=== PATIENT | male | born 1955 | race Caucasian/White ===

== ENCOUNTER 2019-08-03 14:25 | Day surgery (SDC) | payer MEDICARE, MEDICAID ==
[~2019-08-03] VITALS: Ht 170.2 cm; Wt 116.3 kg
[2019-08-03] VITALS (7 sets, daily range): BP systolic 110–121; BP diastolic 61–75
[~2019-08-03 14:25] MED LIST: ALBU18HF2 IH; ASPI-1009 PO; ATOR40TA PO; ENAL10TA PO; GABA-347 PO; LOSA25TA96 PO; METF500T PO; NITR1PAT TD
[2019-08-03] MEDS ORDERED: diphenhydrAMINE 25mg capsule PO ONE (14:45)
[2019-08-03] MEDS ORDERED: LORazepam 0.5 MG tablet PO ONE (14:45)
[2019-08-03] MEDS ORDERED: LIDOcaine/PRILOcaine 5gm cream TP ONE (14:45)
[2019-08-03] MEDS ORDERED: normal saline 1000ml 1,000 ML IV SCH (14:45)
[2019-08-03] MEDS ORDERED: METF500T PO (14:59)
[2019-08-03] MEDS ORDERED: DABI150C PO (15:00)
[2019-08-03] MEDS ORDERED: SOTA80TA73 PO (15:03)
[2019-08-03] MEDS ORDERED: AMLO2.5T2 PO (15:05)
[2019-08-03 15:39] LABS: PARTIAL THROMBOPLASTIN TIME 23 SECONDS (22-32)
[2019-08-03] MEDS ORDERED: heparin 1,000unit/ml 10ml vial 10 ML ONE (17:41)
[2019-08-03] MEDS ORDERED: midazolam 2 mg/2 ml injection ONE (17:41)
[2019-08-03] MEDS ORDERED: verapamil 2.5 mg/ml inj IV ONE (17:41)
[2019-08-03] MEDS ORDERED: LIDOcaine 1% (10mg/ml)w/preservative injection 20ml MDV ONE (17:41)
[2019-08-03] MEDS ORDERED: iohexol 350MG/ML 100ml bottle IV ONE (17:41)
[2019-08-03] MEDS ORDERED: heparin 1,000 UNITS/NS 500ml 500 ML ONE ×2 (17:42)
[2019-08-03] MEDS ORDERED: fentaNYL/PF 50MCG/1 ML 2ML syringe ONE (17:42)
[2019-08-03] MEDS ORDERED: nitroGLYCERIN-Tridil 50MG/D5W 250 ML IV ONE (17:42)
[2019-08-03] MEDS ORDERED: HYDROcodone/acetaminophen 5mg/325mg tablet PO PRN (18:40)
[2019-08-03] MEDS ORDERED: HYDROcodone/acetaminophen 10/325mg tab PO PRN (18:40)
[2019-08-03] MEDS ORDERED: proCHLORperazine 10 MG/2 ml inj IV PRN (18:40)
[2019-08-03] MEDS ORDERED: OXAZEpam 15mg capsule PO PRN (18:40)
[2019-08-03] MEDS ORDERED: ondansetron/PF 4mg/2ml inj IV PRN (18:40)
== END 2019-08-03 20:35 | disposition home or self-care (01) ==
LOC: SSTAY O 14:25
PROVIDERS: ATTEND Internal Medicine Interventional Cardiology
DX: R94.39 Abnormal result of other cardiovascular function study (principal); I25.10 Atherosclerotic heart disease of native coronary artery without angina pectoris; G47.33 Obstructive sleep apnea (adult) (pediatric); E11.9 Type 2 diabetes mellitus without complications; I10 Essential (primary) hypertension; I48.91 Unspecified atrial fibrillation; E78.5 Hyperlipidemia, unspecified; F17.210 Nicotine dependence, cigarettes, uncomplicated; Z86.718 Personal history of other venous thrombosis and embolism; Z79.899 Other long term (current) drug therapy; Z79.84 Long term (current) use of oral hypoglycemic drugs; Z95.5 Presence of coronary angioplasty implant and graft; Z88.8 Allergy status to other drugs, medicaments and biological substances
CPT/HCPCS: 36415; 82948; 85610; 85730; 93005; 93458; 99152; C1769; C1894; J1644; J2001; J2250; J3010; J7030; Q0163; Q9967; A4620; A6258; J3490

== ENCOUNTER 2023-08-12 10:37 | Day surgery (SDC) | payer MEDICARE, MEDICAID ==
[2023-08-12] VITALS (16 sets, daily range): BP systolic 115–152; BP diastolic 56–123; PULSE 63–90; RESP 8–24; TEMP 98.3; O2SAT 91–96
[~2023-08-12] VITALS: Ht 170.2 cm; Wt 117.9 kg
[~2023-08-12 10:37] MED LIST changes: -ALBU18HF2 IH; +AMLO2.5T2 PO; -ASPI-1009 PO; +DABI150C PO; -ENAL10TA PO; +LOSA-415 PO; -LOSA25TA96 PO; -NITR1PAT TD; +SOTA80TA73 PO
[2023-08-12] MEDS ORDERED: fentaNYL/PF 50MCG/1 ML 2ML syringe IV ONE (11:05)
[2023-08-12] MEDS ORDERED: MIDAZolam 1mg/ml 10ml vial IV ONE (11:05)
[2023-08-12] MEDS ORDERED: normal saline 1000ml 1,000 ML IV SCH (11:05)
[2023-08-12] MEDS ORDERED: ALBU6.7H14 INH (12:03)
[2023-08-12] MEDS ORDERED: AMLO1TAB14 PO (12:03)
[2023-08-12] MEDS ORDERED: DOXA4TAB3 PO (12:03)
[2023-08-12] MEDS ORDERED: NITR0.4T51 SL (12:03)
[2023-08-12] MEDS ORDERED: METO100T14 PO (12:03)
== END 2023-08-12 13:45 | disposition home or self-care (01) ==
LOC: SSTAY O 10:37
PROVIDERS: ATTEND Student in an Organized Health Care Education/Training Program
DX: I48.20 Chronic atrial fibrillation, unspecified (principal); I10 Essential (primary) hypertension; E11.9 Type 2 diabetes mellitus without complications; E78.5 Hyperlipidemia, unspecified; I25.10 Atherosclerotic heart disease of native coronary artery without angina pectoris; G47.33 Obstructive sleep apnea (adult) (pediatric); I65.29 Occlusion and stenosis of unspecified carotid artery; I70.0 Atherosclerosis of aorta; F17.290 Nicotine dependence, other tobacco product, uncomplicated; Z86.718 Personal history of other venous thrombosis and embolism; Z95.5 Presence of coronary angioplasty implant and graft; Z88.8 Allergy status to other drugs, medicaments and biological substances; Z79.84 Long term (current) use of oral hypoglycemic drugs; Z79.899 Other long term (current) drug therapy
CPT/HCPCS: 82948; 93312; 93325; 94760; J7030; A4615; A4620

== ENCOUNTER 2023-09-04 07:24 | Inpatient (IN) | payer MEDICARE, MEDICAID ==
[2023-09-01 12:28] LABS: BILIRUBIN,URINE NEGATIVE (Neg); CLARITY,URINE CLEAR (Clear); COLOR,URINE YELLOW (Yellow); GLUCOSE, URINE >=1000 mg/dl (Neg); KETONES,URINE TRACE mg/dl (Neg); LEUKOCYTE ESTERASE ,URINE NEGATIVE (Neg); NITRITES, URINE NEGATIVE (Neg); OCCULT BLOOD,URINE NEGATIVE (Neg); PROTEIN,URINE TRACE mg/dl (Neg); UROBILINOGEN,URINE 0.2 E.U/dL (0.2-1.0)
[2023-09-01 12:34] LABS: BASOPHILS # (AUTO) 0.1 X10'3 (0-0.2); BASOPHILS % (AUTO) 0.4 % (0-1); EOSINOPHILS # (AUTO) 0.1 X10'3 (0-0.9); EOSINOPHILS % (AUTO) 0.6 % (0-6); LYMPHOCYTES # (AUTO) 5.2 X10'3 (1.1-4.8); LYMPHOCYTES % (AUTO) 42.9 % (21-51); MEAN CORPUSCULAR HGB CONC 32.2 g/dL (33.0-36.5); MEAN PLATELET VOLUME 9.3 FL (7.4-10.4); MONOCYTES # (AUTO) 0.9 X10'3 (0-0.9); MONOCYTES % (AUTO) 7.6 % (2-12); NEUTROPHILS # (AUTO) 5.8 X10'3 (1.8-7.7); NEUTROPHILS % (AUTO) 48.5 % (42-75); PRE OP HEMATOCRIT 45.4 % (42.0-52.0); PRE OP HEMOGLOBIN 14.6 g/dL (14.0-17.9); PRE OP PLATELET COUNT 146 X10'3 (140-440); RED BLOOD COUNT 5.05 X10'6 (4.70-6.10); RED CELL DISTRIBUTION WIDTH 14.3 % (11.5-14.5)
[2023-09-01 12:37] LABS: UA COLLECTION TYPE CLN CATCH MIDSTREAM
[2023-09-01 12:38] LABS: ALBUMIN 3.6 G/DL (3.4-5.0); ALKALINE PHOSPHATASE 102 IU/L (46-116); BACTERIA,URINE FEW /HPF (Neg); BLOOD UREA NITROGEN 14 MG/DL (7-18); BUN/CREATININE RATIO 17.1 (10.0-20.0); CALCIUM 8.8 MG/DL (8.5-10.1); CHLORIDE 107 MMOL/L (99-107); CREATININE 0.82 MG/DL (0.60-1.10); PRE OP ALT 26 U/L (30-65); PRE OP ANION GAP 2 (8-16); PRE OP AST 15 U/L (10-37); PRE OP BILIRUB, TOTAL 0.3 MG/DL (0.0-1.0); PRE OP POTASSIUM 4.5 MMOL/L (3.4-5.1); PRE OP SODIUM 140 MMOL/L (135-145); RBC,URINE 0-2 /HPF (0-2); SQUAMOUS EPITHELIAL CELL,UR MODERATE /LPF (FEW); TOTAL CARBON DIOXIDE 30.9 MMOL/L (24-32); TOTAL PROTEIN 7.1 G/DL (6.4-8.2); WBC,URINE 0-4 /HPF (0-4); eGFR > 90 ML/MIN
[2023-09-01 12:39] LABS: PRE OP GLUCOSE 223 MG/DL (70-104)
[2023-09-01 12:54] LABS: PRE OP INR 1.2 INR; PRE OP PROTIME 12.9 SECONDS (9.0-12.0)
[2023-09-01 13:06] LABS: HEMOGLOBIN A1C 8.4 % (4.5-6.2); LARGE PLATELETS FEW; PLATELET ESTIMATE NORMAL
[2023-09-04] VITALS (24 sets, daily range): BP systolic 132–170; BP diastolic 64–111; PULSE 59–98; RESP 12–24; TEMP 97.1–98.4; O2SAT 90–99
[~2023-09-04] VITALS: Ht 170.2 cm; Wt 117.0 kg
[~2023-09-04 07:24] MED LIST changes: +ACET-1084 PO; +ALBU6.7H14 INH; +AMLO1TAB14 PO; -AMLO2.5T2 PO; +DOCUMENT DATE & TIME OF BETA-BLOCKER PO ONE; +DOXA4TAB3 PO; +IBUP-1985 PO; -LOSA-415 PO; +METF-900 PO; -METF500T PO; +METO-411 PO; +NITR0.4T51 SL; +cefazolin 2gm/D5W 100mL 100 ML IV ONE; +famotidine 20mg tablet PO ONE; +nitroPRUSSIDE (NIPRIDE) (200MCG/ML) 100ML Drip IV SCH; +ondansetron/PF 4mg/2ml inj IV PRN; +phenylephrine inj 50 MG in normal saline 250ml IV solN IV SCH; +ringers solution, lacted 1,000 ML IV SCH; +vancomycin 1,500 MG in NS 300ml IV soln IV ONE
[2023-09-04] MEDS ORDERED: ipratropium/albuterol 3ml nebule ONE (09:23)
[2023-09-04] MEDS ORDERED: meperidine/PF 25mg/ml syringe IV PRN ×3 (10:35)
[2023-09-04] MEDS ORDERED: ondansetron/PF 4mg/2ml inj IV PRN ×2 (10:35→11:50)
[2023-09-04] MEDS ORDERED: proCHLORperazine 10 MG/2 ml inj IV PRN ×2 (10:35→11:50)
[2023-09-04] MEDS ORDERED: morphine 2 MG/ML inj. syringe IV PRN (10:35)
[2023-09-04] MEDS ORDERED: ringers solution, lacted 1,000 ML IV SCH (10:35)
[2023-09-04] MEDS ORDERED: morphine 4 MG/ML inj SYRINge IV PRN (10:35)
[2023-09-04] MEDS ORDERED: iohexol 350 MG/ML 50ML vial IV ONE (10:46)
[2023-09-04] MEDS ORDERED: sevoflurane 250ml liquid IH ONE (10:50)
[2023-09-04] MEDS ORDERED: midazolam 1 mg/ML 2ml injection ONE (11:05)
[2023-09-04] MEDS ORDERED: fentaNYL/PF 50MCG/1 ML 2ML syringe ONE (11:05)
[2023-09-04] MEDS ORDERED: albuterol 2.5 MG/3 ML nebule NEB PRN (11:20)
[2023-09-04] MEDS ORDERED: acetaminophen 325mg tablet PO PRN ×2 (11:20→11:50)
[2023-09-04] MEDS ORDERED: nitroGLYCERIN 0.4mg SUBLingual tab SL PRN (11:20)
[2023-09-04] MEDS ORDERED: heparin 1,000unit/ml 10ml vial 10 ML ONE (11:33)
[2023-09-04] MEDS ORDERED: rocuronium 10mg/ml inj IV ONE (11:33)
[2023-09-04] MEDS ORDERED: propofol inj 20 ML IV ONE (11:34)
[2023-09-04] MEDS ORDERED: dexamethasone sod phosphate 4mg/ml inj. ONE (11:34)
[2023-09-04] MEDS ORDERED: labetalol 20mg/4ml (5mg/ml) syringe IV PRN (11:50)
[2023-09-04] MEDS ORDERED: magnesium 4gm in 100ml NS 100 ML IV PRN (11:50)
[2023-09-04] MEDS ORDERED: potassium Cl 20 mEq SR tablet PO PRN (11:50)
[2023-09-04] MEDS ORDERED: potassium Cl 40MEQ/1/2NS 520ml 520 ML IV PRN (11:50)
[2023-09-04] MEDS ORDERED: potassium CL 10mEq/100ml bag 100 ML IV PRN (11:50)
[2023-09-04] MEDS ORDERED: glucagon, human recombinant 1mg kit SUBCUT PRN (11:50)
[2023-09-04] MEDS ORDERED: docusate sod 100mg capsule PO PRN (11:50)
[2023-09-04] MEDS ORDERED: potassium Cl 20mEq/100mL bag 100 ML IV PRN (11:50)
[2023-09-04] MEDS ORDERED: hydrALAZINE 20mg/ml inj. IV PRN (11:50)
[2023-09-04] MEDS ORDERED: potassium Cl 40MEQ/270ML bag 270 ML IV PRN (11:50)
[2023-09-04] MEDS ORDERED: ALPRAZolam 0.25mg tablet PO PRN (11:50)
[2023-09-04] MEDS ORDERED: DEXTROSE 15 GM of carb/4 tabs (each vial/BOTTLE has 4 tablets) PO PRN ×2 (11:50)
[2023-09-04] MEDS ORDERED: pantoprazole 40mg Tablet.DR PO PRN (11:50)
[2023-09-04] MEDS ORDERED: diphenhydrAMINE 25mg capsule PO PRN (11:50)
[2023-09-04] MEDS ORDERED: dextrose 50%-water 50ml dispensing syringe IV PRN ×2 (11:50)
[2023-09-04] MEDS ORDERED: MESSAGE TO PHARMACY PO ONE (11:50)
[2023-09-04] MEDS ORDERED: insulin regular, human U-100 3ml vial - multi-dose SQ SCH (11:50)
[2023-09-04] MEDS ORDERED: magnesium 2GM in 50ml NS 50 ML IV PRN (11:50)
--- NOTE | 2023-09-04 11:59 | NUR ---
Received from OR via BED, accompanied by Anesthesiologist DR. PIRES and report given by Anesthesiologist AND OR NURSE. PT ARRIVED DROWSY BUT ABLE TO RESPOND TO VERBAL STIMULI ON 10 L OF 02 VIA MASK. VSS. PT HAS 18 G IV TO RIGHT AC AND ART LINE TO LEFT WRIST AND PRESSURE DEVICE INTACT. PT HAS DRESSING TO R GROIN THAT IS C/D/I, NO SWELLING OR BLEEDING NOTED. LR CURRENTLY RUNNING. NEURO ASSESSMENT COMPLETED. 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 BILATERAL PEDAL PULSES STRONG. VSS. WILL CONTINUE TO MONITOR AND RECHECK GROIN SITES. Addendum: 09/04/23 at 1240 by Edvin Romero RN Amended: Links added.
--- NOTE | 2023-09-04 13:00 | NUR ---
DISCONTINUE LEFT RADIAL ART-LINE. HEMOSTASIS OBTAINED AFTER APPLIED MANUAL PRESSURE FOR 10 MINUTES. APPLIED GAUZE AND COBAN. PATIENT TOLERATED PROCEDURE WELL. Addendum: 09/04/23 at 1333 by Edvin Romero RN Amended: Links added.
--- NOTE | 2023-09-04 13:15 | NUR ---
DISCONTINUE FIGURE8 DRESSING. NO S/S OF BLEEDING OR HEMATOMA NOTED. APPLIED GAUZE AND TEGADERM. PATIENT TOLERATED IT WELL. Addendum: 09/04/23 at 1334 by Edvin Romero RN Amended: Links added.
--- NOTE | 2023-09-04 13:29 | NUR ---
PATIENT HAS MET ALL CRITERIA FOR TRANSFER TO PCU FLOOR. VSS. DRESSINGS INTACT. BED LOW, CALL LIGHT PRESENT AND 2 RAILS UP. RN PRESENT TO ACCEPT CARE OF PATIENT AND REPORT HAS BEEN CALLED. ALL QUESTIONS ANSWERED TO ACCEPTING RN. Addendum: 09/04/23 at 1335 by Edvin Romero RN Amended: Links added.
[2023-09-04] MEDS: normal saline 1000ml 1,000 ML IV SCH ×2 (13:30→21:50)
[2023-09-04] MEDS: sod chloride 0.9% 10ml flush syringe IV SCH (16:19)
--- NOTE | 2023-09-04 18:30 | NUR ---
Problems reprioritized. Patient report given, questions answered & plan of care reviewed with Rodriguez SHEA. Pt right groin site CDI, no bleeding. and call light in reach. Addendum: 09/04/23 at 1833 by Jaja Abreu RN Amended: Links added.
--- NOTE | 2023-09-04 19:01 | NUR ---
Patient in room PCU 3013. I have received report from Jaja ([id number]) and had the opportunity to ask questions and assume patient care.
[2023-09-04] MEDS ORDERED: insulin glargine (Lantus) pen - multi-dose SQ SCH (21:00)
[2023-09-04] MEDS: insulin Lispro (HumaLOG) vial - multi-dose SQ SCH (23:15)
[2023-09-04] MEDS: gabapentin 400mg capsule PO SCH (23:25)
[2023-09-04] MEDS: metoprolol succinate 25mg (24-HOUR) SR. Tablet PO SCH (23:25)
[2023-09-04] MEDS: sotalol HCl 40mg (1/2 tablet) PO SCH (23:26)
[2023-09-04] MEDS: dabigatran 150mg capsule PO SCH (23:27)
[2023-09-05 02:46] VITALS: BP 119/54; PULSE 70; RESP 16; TEMP 98.5; O2SAT 96
[2023-09-05 06:00] VITALS: BP 131/64; PULSE 65; RESP 14; TEMP 97.3; O2SAT 91
--- NOTE | 2023-09-05 06:14 | NUR ---
Problems reprioritized. Patient report given, questions answered & plan of care reviewed with Jaja (RN).
--- NOTE | 2023-09-05 06:18 | NUR ---
Patient in room PCU 3013. I have received report from flako SHEA and had the opportunity to ask questions and assume patient care. Pt sleeping. call light in reach Addendum: 09/05/23 at 0620 by Jaja Abreu RN Amended: Links added.
[2023-09-05 06:46] LABS: BASOPHILS % (AUTO) 0.2 % (0-1); EOSINOPHILS % (AUTO) 0 % (0-6); HEMATOCRIT 40.6 % (42.0-52.0); HEMOGLOBIN 13.5 g/dl (14.0-17.9); LYMPHOCYTES # (AUTO) 4.1 X10'3 (1.1-4.8); LYMPHOCYTES % (AUTO) 31.8 % (21-51); MEAN CORPUSCULAR HEMOGLOBIN 29.7 PG (27.0-31.0); MEAN CORPUSCULAR HGB CONC 33.3 g/dL (33.0-36.5); MEAN CORPUSCULAR VOLUME 89.1 FL (78-98); MEAN PLATELET VOLUME 9.7 FL (7.4-10.4); MONOCYTES % (AUTO) 7.4 % (2-12); NEUTROPHILS # (AUTO) 7.8 X10'3 (1.8-7.7); NEUTROPHILS % (AUTO) 60.6 % (42-75); PLATELET COUNT 123 X10'3 (140-440); RED BLOOD COUNT 4.56 X10'6 (4.70-6.10); RED CELL DISTRIBUTION WIDTH 14.3 % (11.5-14.5); WHITE BLOOD COUNT 12.8 X10'3 (4.5-11.0)
[2023-09-05 06:59] LABS: INR 1.1 INR; PROTHROMBIN TIME 11.6 SECONDS (9.0-12.0)
[2023-09-05 07:29] LABS: ALANINE AMINOTRANSFERASE 20 U/L (12-78); ALBUMIN 3.3 G/DL (3.4-5.0); ALBUMIN/GLOBULIN RATIO 1.1 (1.1-1.5); ALKALINE PHOSPHATASE 93 IU/L (46-116); ANION GAP 6 (8-16); ASPARTATE AMINO TRANSFERASE 15 U/L (10-37); BILIRUBIN,TOTAL 0.5 MG/DL (0.1-1.0); BLOOD UREA NITROGEN 15 MG/DL (7-18); BUN/CREATININE RATIO 20.3 (10.0-20.0); CALCIUM 8.5 MG/DL (8.5-10.1); CHLORIDE 104 MMOL/L (99-107); CREATININE 0.74 MG/DL (0.60-1.10); GLUCOSE 182 MG/DL (70-104); MAGNESIUM 1.9 MG/DL (1.5-2.4); PRO BRAIN NATRIURETIC PEPTIDE 303 PG/ML (0-125); SODIUM 138 MMOL/L (135-145); TOTAL PROTEIN 6.3 G/DL (6.4-8.2); eCRCL 92 ML/MIN; eGFR > 90 ML/MIN
[2023-09-05] MEDS: normal saline 1000ml 1,000 ML IV SCH (07:50)
[2023-09-05 07:55] VITALS: RESP 14; O2SAT 91
[2023-09-05] MEDS ORDERED: losartan 50mg tablet PO SCH (08:00)
[2023-09-05] MEDS ORDERED: atorvastatin 20mg tablet PO SCH (08:00)
[2023-09-05] MEDS ORDERED: amLODIPine 5mg tablet PO SCH (08:00)
[2023-09-05] MEDS: sod chloride 0.9% 10ml flush syringe IV SCH (08:00)
[2023-09-05] MEDS ORDERED: doxazosin mesylate 2mg tablet PO SCH (08:00)
[2023-09-05] MEDS: metoprolol succinate 25mg (24-HOUR) SR. Tablet PO SCH (08:01)
[2023-09-05] MEDS: gabapentin 400mg capsule PO SCH (08:02)
[2023-09-05] MEDS: insulin Lispro (HumaLOG) vial - multi-dose SQ SCH ×2 (08:11→12:52)
[2023-09-05] MEDS: dabigatran 150mg capsule PO SCH (10:39)
[2023-09-05] MEDS: sotalol HCl 40mg (1/2 tablet) PO SCH (10:40)
[2023-09-05 10:59] VITALS: BP 117/56; PULSE 69; RESP 14; TEMP 98.7; O2SAT 96
[2023-09-05 11:50] VITALS: PULSE 67; RESP 16; O2SAT 92
[2023-09-05] MEDS ORDERED: ondansetron 4mg rapidly disintigrating tab PO PRN (12:20)
--- NOTE | 2023-09-05 14:17 | NUR ---
All written and verbal order for D/C given. All questions answered. Pt stated he had all belongings. pt stated he would follow all activity instructions. Addendum: 09/05/23 at 1419 by Jaja Abreu RN Amended: Links added.
== END 2023-09-05 14:06 | disposition home or self-care (01) | DRG 274 ==
LOC: PAS IN 07:24 → UNDOADMIN 07:24 → PAS IN 11:56 → PCU 3S 13:29
PROVIDERS: ADMIT Student in an Organized Health Care Education/Training Program; ATTEND Student in an Organized Health Care Education/Training Program
PROC: B24BZZ4 Ultrasonography of Heart with Aorta, Transesophageal (ICD-10-PCS; 2023-09-04)
PROC: 03HY32Z Insertion of Monitoring Device into Upper Artery, Percutaneous Approach (ICD-10-PCS; 2023-09-04)
PROC: 02L73DK Occlusion of Left Atrial Appendage with Intraluminal Device, Percutaneous Approach (ICD-10-PCS; principal; 2023-09-04 10:50)
DX: I48.91 Unspecified atrial fibrillation (principal); Z00.6 Encounter for examination for normal comparison and control in clinical research program; I10 Essential (primary) hypertension; E78.5 Hyperlipidemia, unspecified; G47.33 Obstructive sleep apnea (adult) (pediatric); F17.200 Nicotine dependence, unspecified, uncomplicated; I25.10 Atherosclerotic heart disease of native coronary artery without angina pectoris; E11.9 Type 2 diabetes mellitus without complications; Z88.8 Allergy status to other drugs, medicaments and biological substances; Z95.5 Presence of coronary angioplasty implant and graft
CPT/HCPCS: 33340; 36415; 71045; 71046; 76937; 80053; 81001; 82948; 83036; 83735; 83880; 85008; 85025; 85347; 85610; 85730; 86885; 86900; 86901; 86920; 87081; 93005; 93308; 93312; 94640; A4615; A4618; A6258; A6449; C1760; C1889; C1893; C1894; G0378; J0690; J1100; J1644; J1815; J2250; J2370; J2704; J3010; J3370; J3490; J7030; J7040; J7050; J7120; Q9967

== ENCOUNTER 2023-10-15 08:28 | Outpatient (CLI) | payer MEDICARE, MEDICAID ==
[~2023-10-15 08:28] MED LIST changes: -DOCUMENT DATE & TIME OF BETA-BLOCKER PO ONE; -IBUP-1985 PO; -cefazolin 2gm/D5W 100mL 100 ML IV ONE; -famotidine 20mg tablet PO ONE; -nitroPRUSSIDE (NIPRIDE) (200MCG/ML) 100ML Drip IV SCH; -ondansetron/PF 4mg/2ml inj IV PRN; -phenylephrine inj 50 MG in normal saline 250ml IV solN IV SCH; -ringers solution, lacted 1,000 ML IV SCH; -vancomycin 1,500 MG in NS 300ml IV soln IV ONE
[2023-10-15 09:05] LABS: BASOPHILS % (AUTO) 0.2 % (0-1); EOSINOPHILS # (AUTO) 0.1 X10'3 (0-0.9); EOSINOPHILS % (AUTO) 0.6 % (0-6); HEMOGLOBIN 14.1 g/dl (14.0-17.9); LYMPHOCYTES # (AUTO) 4.8 X10'3 (1.1-4.8); LYMPHOCYTES % (AUTO) 35.5 % (21-51); MEAN CORPUSCULAR HEMOGLOBIN 29.6 PG (27.0-31.0); MEAN CORPUSCULAR HGB CONC 32.8 g/dL (33.0-36.5); MEAN CORPUSCULAR VOLUME 90.3 FL (78-98); MONOCYTES % (AUTO) 7.7 % (2-12); NEUTROPHILS # (AUTO) 7.5 X10'3 (1.8-7.7); PLATELET COUNT 174 X10'3 (140-440); RED BLOOD COUNT 4.76 X10'6 (4.70-6.10); RED CELL DISTRIBUTION WIDTH 15.1 % (11.5-14.5); WHITE BLOOD COUNT 13.4 X10'3 (4.5-11.0)
[2023-10-15 09:25] LABS: APTT 37 SECONDS (22-32); INR 1.1 INR; PROTHROMBIN TIME 11.5 SECONDS (9.0-12.0)
[2023-10-15 09:27] LABS: ALANINE AMINOTRANSFERASE 39 U/L (12-78); ALBUMIN 3.5 G/DL (3.4-5.0); ALBUMIN/GLOBULIN RATIO 1.1 (1.1-1.5); ALKALINE PHOSPHATASE 103 IU/L (46-116); ANION GAP 6 (8-16); ASPARTATE AMINO TRANSFERASE 15 U/L (10-37); BILIRUBIN,TOTAL 0.5 MG/DL (0.1-1.0); BLOOD UREA NITROGEN 15 MG/DL (7-18); BUN/CREATININE RATIO 15.6 (10.0-20.0); CALCIUM 8.7 MG/DL (8.5-10.1); CHLORIDE 103 MMOL/L (99-107); CREATININE 0.96 MG/DL (0.60-1.10); GLUCOSE 249 MG/DL (70-104); POTASSIUM 4.5 MMOL/L (3.5-5.1); SODIUM 142 MMOL/L (135-145); TOTAL PROTEIN 6.8 G/DL (6.4-8.2); eGFR 78 ML/MIN
[2023-10-15] MEDS ORDERED: iohexol 350MG/ML 100ml bottle IV ONE (09:38)
== END 2023-10-15 23:59 | disposition home or self-care (01) ==
LOC: RAD 08:28
PROVIDERS: ATTEND Student in an Organized Health Care Education/Training Program
DX: I25.10 Atherosclerotic heart disease of native coronary artery without angina pectoris (principal); R59.0 Localized enlarged lymph nodes; I48.91 Unspecified atrial fibrillation; Z95.818 Presence of other cardiac implants and grafts
CPT/HCPCS: 36415; 75572; 80053; 85025; 85610; 85730; J3490; Q9967; 70496